=== PATIENT | female | born 1970 | race Caucasian/White ===

== ENCOUNTER 2018-01-20 17:09 | Emergency (ER) | payer BC ==
[2018-01-20 17:16] VITALS: BP 115/74
[2018-01-20] MEDS ORDERED: NORMAL SALINE 1000 ML 1,000 ML IV PRN (18:14)
--- NOTE | 2018-01-20 18:15 | ER Document Report ---
ED Medical Screen (RME) - General Chief Complaint: Vaginal Bleeding Stated Complaint: VAGINAL BLEEDING Time Seen by Provider: 01/20/18 18:13 Notes: 47 years old female had a cone biopsy of the cervix yesterday and drove around 9 hours to come here started bleeding on the way. TRAVEL OUTSIDE OF THE [place] IN LAST 30 DAYS: No - Related Data Allergies/Adverse Reactions: amoxicillin Allergy (Verified 01/20/18 17:11) cefaclor [From Ceclor] Allergy (Verified 01/20/18 17:11) cefuroxime [From Ceftin] Allergy (Verified 01/20/18 17:11) ciprofloxacin [From Cipro] Allergy (Verified 01/20/18 17:11) moxifloxacin [From Avelox] Allergy (Verified 01/20/18 17:11) Penicillins Allergy (Verified 01/20/18 17:11) Sulfa (Sulfonamide Antibiotics) Allergy (Verified 01/20/18 17:11) Past Medical History Renal/ Medical History: Denies: Hx Peritoneal Dialysis Physical Exam - Vital signs Vitals: Temp Pulse Resp BP Pulse Ox 98.9 F 93 18 115/74 99 01/20/18 17:15 01/20/18 17:15 01/20/18 17:15 01/20/18 17:15 01/20/18 17:15 Course - Vital Signs Vital signs: Temp Pulse Resp BP Pulse Ox 98.9 F 93 18 115/74 99 01/20/18 17:15 01/20/18 17:15 01/20/18 17:15 01/20/18 17:15 01/20/18 17:15
[2018-01-20 18:58] LABS: APPEARANCE,URINE CLEAR; BILIRUBIN,URINE NEGATIVE (NEGATIVE); COLOR,URINE YELLOW; GLUCOSE, URINE NEGATIVE (NEGATIVE); KETONES,URINE NEGATIVE (NEGATIVE); LEUKOCYTE ESTERASE,URINE NEGATIVE (NEGATIVE); NITRITE,URINE NEGATIVE (NEGATIVE); PROTEIN,URINE NEGATIVE (NEGATIVE); URINE SPECIFIC GRAVITY 1.003; UROBILINOGEN,URINE NEGATIVE mg/dL (<2.0)
--- NOTE | 2018-01-20 19:36 | ER Document Report ---
ED General - General Chief Complaint: Vaginal Bleeding Stated Complaint: VAGINAL BLEEDING Time Seen by Provider: 01/20/18 18:13 Notes: Patient was out of town concern for vaginal bleeding. Patient states that she had lasering of her cervix for abnormal cell changes by her OB GEN earlier this week. She states that she had scant vaginal bleeding that started yesterday but when she woke up this morning she had a large cups of blood that concerned her this morning. She states that her symptoms improved throughout the day. She denies any dizziness cough congestion fevers chest pain shortness of breath. She does have mild pelvic tenderness. She states her last menstrual period was approximately 2 weeks ago. She is not on any blood thinners. TRAVEL OUTSIDE OF THE [place] IN LAST 30 DAYS: No - Related Data Allergies/Adverse Reactions: amoxicillin Allergy (Verified 01/20/18 17:11) cefaclor [From Ceclor] Allergy (Verified 01/20/18 17:11) cefuroxime [From Ceftin] Allergy (Verified 01/20/18 17:11) ciprofloxacin [From Cipro] Allergy (Verified 01/20/18 17:11) moxifloxacin [From Avelox] Allergy (Verified 01/20/18 17:11) Penicillins Allergy (Verified 01/20/18 17:11) Sulfa (Sulfonamide Antibiotics) Allergy (Verified 01/20/18 17:11) Past Medical History - Social History Smoking Status: Current Every Day Smoker Family History: None Patient has suicidal ideation: No Patient has homicidal ideation: No Renal/ Medical History: Denies: Hx Peritoneal Dialysis Review of Systems - Review of Systems Constitutional: No symptoms reported EENT: No symptoms reported Cardiovascular: No symptoms reported Respiratory: No symptoms reported Gastrointestinal: No symptoms reported Genitourinary: No symptoms reported Female Genitourinary: Vaginal bleeding - Mild pelvic tenderness Musculoskeletal: No symptoms reported Skin: No symptoms reported Hematologic/Lymphatic: No symptoms reported Neurological/Psychological: No symptoms reported Physical Exam - Vital signs Vitals: Temp Pulse Resp BP Pulse Ox 98.9 F 93 18 115/74 99 01/20/18 17:15 01/20/18 17:15 01/20/18 17:15 01/20/18 17:15 01/20/18 17:15 - General General appearance: Appears well, Alert - HEENT Head: Normocephalic, Atraumatic - Respiratory Respiratory status: No respiratory distress Chest status: Nontender Breath sounds: Normal Chest palpation: Normal - Cardiovascular Rhythm: Regular Heart sounds: Normal auscultation Murmur: No - Abdominal Inspection: Normal Distension: No distension Bowel sounds: Normal Tenderness: Other - Mild tenderness palpation of mid pelvic area - Genitourinary Speculum exam: Cervix closed - Small amount of blood in vaginal fornix with no active bleeding from cervix other than with palpation pelvis small amount of fluid did exit the cervix. - Back Back: Normal. No: CVA tenderness - Neurological Orientation: AAOx4 Course - Re-evaluation Re-evalutation: 01/20/18 20:[address] Gonzalez who is on-call for patient's OB GEN and states to perform an CBC and provide that information to the patient so that she would have a baseline for when they reevaluate patient when she is back in her home town. Patient has normal vitals there was no active bleeding from the patient's cervix other than applying mild pressure to her pelvic area small amount of blood did exit the cervix. There is no active bleeding or concerns on exam 01/20/18 20:57 01/20/18 21:16 Discussed with patient that OB GEN on-call wanted CBC to have baseline she continues to bleed and there reevaluate her on Tuesday or Tuesday of next week. Patient walking around the room very antsy stating that she is not used to waiting this long is wanting to leave. I did convince her to have her blood drawn prior to discharge. 01/20/18 21:26 Did not feel patient had to wait for CBC as her bleeding has subsided without intervention it was transient only today and unlikely that if there was any heavy acute bleeding that it would be detected on CBC as there is not been sufficient time for fluid shifts. - Vital Signs Vital signs: Temp Pulse Resp BP Pulse Ox 98.9 F 93 18 115/74 99 01/20/18 17:15 01/20/18 17:15 01/20/18 17:15 01/20/18 17:15 01/20/18 17:15 - Laboratory Laboratory results interpreted by me: 01/20/18 18:18 Urine Blood LARGE H Discharge - Discharge Clinical Impression: Vaginal bleeding Condition: Good Disposition: HOME, SELF-CARE Additional Instructions: Please return to the emergency department if you begin to experience excessive vaginal bleeding equivalent to feeling more than 1 large maxi pad every hour for greater than 6 hours. Otherwise, follow-up with your [facility]ON[facility] SPECIALIST early next week for reevaluation. They can obtain the CBC collected today or you can come back tomorrow to obtain results.
[2018-01-20 21:44] LABS: ABSOLUTE BASOPHILS # (AUTO) 0.1 10^3/uL (0.0-0.2); ABSOLUTE EOSINOPHILS # (AUTO) 0.2 10^3/uL (0.0-0.6); ABSOLUTE LYMPHOCYTES (AUTO) 2.3 10^3/uL (0.5-4.7); ABSOLUTE MONOCYTES (AUTO) 0.5 10^3/uL (0.1-1.4); ABSOLUTE NEUT (AUTO) 7.2 10^3/uL (1.7-8.2); BASOPHILS % (AUTO) 0.5 % (0-2); EOSINOPHILS % (AUTO) 2.2 % (0-6); HEMATOCRIT 39.1 % (36.0-47.0); HEMOGLOBIN 13.8 g/dL (12.0-15.5); LYMPHOCYTES % (AUTO) 22.4 % (13-45); MEAN CORPUSCULAR HEMOGLOBIN 34.5 pg (27.0-33.4); MEAN CORPUSCULAR HGB CONC 35.3 g/dL (32.0-36.0); MEAN CORPUSCULAR VOLUME 98 fl (80-97); MONOCYTES % (AUTO) 4.7 % (3-13); PLATELET COUNT 259 10^3/uL (150-450); RED CELL DISTRIBUTION WIDTH 12.6 % (11.5-14.0); SEGMENTED NEUTROPHILS % (AUTO) 70.2 % (42-78); TOTAL CELLS COUNTED % (AUTO) 100 %; WHITE BLOOD COUNT 10.2 10^3/uL (4.0-10.5)
== END 2018-01-20 21:36 | disposition home or self-care (01) ==
LOC: ER 17:09
DX: N93.9 Abnormal uterine and vaginal bleeding, unspecified (principal); Z98.890 Other specified postprocedural states; R10.819 Abdominal tenderness, unspecified site; Z88.0 Allergy status to penicillin; Z88.1 Allergy status to other antibiotic agents; Z88.2 Allergy status to sulfonamides; F17.200 Nicotine dependence, unspecified, uncomplicated
CPT/HCPCS: 36415; 81001; 85025; 99284

== ENCOUNTER → 2019-06-08 | Outpatient (CLI) | payer BC ==
[2019-06-11 10:36] LABS: HEPATITIS C VIRUS AB <0.1 s/co ratio (0.0-0.9)
[2019-06-11 13:23] LABS: HEPATITIS BE ANTIGEN Negative (Negative)
== END ==
LOC: OD 17:16
PROVIDERS: ATTEND Student in an Organized Health Care Education/Training Program
DX: Z11.59 Encounter for screening for other viral diseases (principal); Z11.3 Encounter for screening for infections with a predominantly sexual mode of transmission; Z11.4 Encounter for screening for human immunodeficiency virus [HIV]; N95.1 Menopausal and female climacteric states
CPT/HCPCS: 36415; 82670; 83001; 83002; 86592; 86695; 86696; 86701; 86803; 86804; 87350; 87491; 87591